=== PATIENT | male | born 1970 | race Caucasian/White ===

== ENCOUNTER 2025-06-03 07:33 | Emergency (ER) | payer MEDICAID, SELFPAY ==
[2025-06-03 07:32] VITALS: BP 189/89; PULSE 95; RESP 18; TEMP 36.9; O2SAT 99
[2025-06-03 07:37] VITALS: BP 189/89; PULSE 95; RESP 18; TEMP 36.9; O2SAT 99
--- NOTE | 2025-06-03 07:42 | ED.GENADUL_ITS ---
Discharge Plan Disposition Patient Disposition: Home Discharge Details Clinical Impression: Abdominal hernia Primary Care Provider: None,None ED Provider: Devyn Voss Discharge Instructions Additional Instructions: You are seen in the emergency department for your hernia. As we discussed, if you develop abdominal pain nausea or vomiting that does not stop or if you have any other concerns please return to the emergency department. The general surgery team will help arrange follow-up. Referrals: [facility] [Provider Group] Discharge Data Discharge Date/Time-TO BE ENTERED AT DEPARTURE: 06/03/25 10:45 HPI General Date/Time Provider Initiated Documentation: 06/03/25 07:35 . HPI Narrative: MDM This is an uncomfortable appearing normothermic and not tachycardic 55-year-old male with significant midline abdominal hernia for which patient will receive CT scan following labs blood cultures. Given subjective fevers and concern for sepsis I also checked a lactate. Will provide prophylactic antibiotics using pip-tazo following return of creatinine. No pain out of proportion to suggest necrotizing soft tissue infection. No dysuria no frequency to suggest UTI. No testicular pain to suggest torsion. Patient is not been vomiting to suggest small bowel obstruction. No recent antibiotics to suggest increased risk for C. difficile. No chest pain to suggest ACS. 8:45 AM CBC lacks anemia thrombocytopenia and leukocytosis. Reassuring normal lactate. 9:15 AM Patient had no leukocytosis. Normal renal function and no acute electrolyte abnormalities. As result we will defer antibiotics at this point in time. 10:30 AM Patient had a large umbilical hernia but no signs of obstruction. I was in touch with Dr. Nicholas from general surgery. She did not feel patient required acute surgical intervention at this point in time. Patient met and discussed return indications including any vomiting did not stop or any nausea. His wounds were covered. There is no signs of superinfection at this point in time. As result we will defer antibiotics. He will follow-up for wound care General Surgery clinic. He had no satellite lesions to suggest candidiasis infection. He did have mild no significant erythema nor warmth I was not concerned for superinfection I did not feel the patient would require cephalexin at this juncture. HPI This is a patient with a history of colostomy presenting with a hernia. The patient underwent a colostomy procedure approximately a year ago in [place], which was intended to be reversed. However, due to complications, the reversal could not be performed. Six months post-surgery, he developed a hernia that has progressively enlarged over time. He has been following up with his healthcare providers in [place] but has not received satisfactory care. This morning, he experienced vomiting and rates his pain as 10 out of 10, stating I am like, I want to jump up a book bridge. He also reported experiencing hot flashes this morning, describing them as like a shake cold and I got a hotge cold. His last meal was a donut and coffee consumed about an hour ago. He does not have diabetes and has abstained from alcohol for the past 6 years. He reports no burning sensation during urination. PAST SURGICAL HISTORY: Colostomy approximately one year ago. Exam General: Uncomfortable-appearing in no acute distress speaking in complete sentences. Head: Normocephalic, atraumatic. Eye: Extraocular eye movements intact. No conjunctival injection. No scleral icterus. Ear, nose, mouth, throat: Grossly normal inspection. Normal voice, handling secretions normally. Neck: Trachea midline. Cardiovascular: Well-perfused distal extremities. Regular rate and rhythm Respiratory: Nonlabored respiration. Clear lungs bilaterally Gastrointestinal: Large approximately 25 x 20 cm central umbilical hernia with intermittent localized excoriated areas as shown in the picture that follows. No significant discoloration. Hernia is soft but has tenderness. No rebound. No guarding. Musculoskeletal: No edema. Moving all 4 extremities spontaneously. Skin: Normal for age and race, grossly normal temperature and turgor. No acute rash. Neurologic: Alert and appropriate, no apparent acute deficits. Related Data Allergies Allergy/AdvReac Type Severity Reaction Status Date / Time No Known Allergies Allergy Unverified 06/03/25 07:37 General Stated Complaint: Abd Prob NATALIE: 3 Course Vital Signs Vital signs: Vital Signs Temperature 36.9 C 06/03/25 07:32 Pulse 95 H 06/03/25 07:32 Respiratory Rate 18 06/03/25 07:32 Blood Pressure 189/89 H 06/03/25 07:32 Pulse Oximetry 99 06/03/25 07:32 Temperature 36.9 C 06/03/25 07:37 Pulse 95 H 06/03/25 07:37 Respiratory Rate 18 06/03/25 07:37 Blood Pressure 189/89 H 06/03/25 07:37 Pulse Oximetry 99 06/03/25 07:37 PFSH All Active Problems (Updated 06/03/25 @ 10:31 by Devyn Voss MD) Abdominal hernia (Acute) Social History Smoking/Tobacco Use Status: Never Smoking risk assessment performed?: Yes Alcohol Intake: never Drug use: Never Substance use type: does not use Housing: homeless
[2025-06-03] MEDS: fentaNYL 100 MCG/2 ML VIAL 50 MCG IVP (08:41)
[2025-06-03] MEDS: Normal Saline 500 ML IV (08:42)
[2025-06-03 08:44] LABS: Abs Immature Grans 0.08 10^3/uL (0.0-0.06); HCT 46.8 % (40.0-50.0); HGB 15.6 g/dL (13.5-17.5); Immature Grans % 0.8 %; MCH 29.3 pg (27.0-33.0); MCHC 33.3 % (32.0-36.0); MCV 88 fL (80-95); MPV 11.2 fL (8.0-11.0); Platelet Count 310 10^3/uL (130-400); RBC 5.33 10^6/uL (4.36-5.78); RDW 13.4 % (11.8-14.1); RDW-SD 43.1 fL; WBC 9.50 10^3/uL (4.4-10.8)
[2025-06-03 09:00] LABS: Anion Gap 8.4 mmol/L (3-11); BUN 10 mg/dL (7-18); CO2 31.6 mmol/L (21.0-32.0); Calcium 9.3 mg/dL (8.5-10.1); Chloride 102 mmol/L (98-107); Estimated GFR 104.51 (mL/min/1.73m2); Glucose 102 mg/dL (74-106); Potassium 3.9 mmol/L (3.5-5.1); Sodium 142 mmol/L (136-145)
[2025-06-03] MEDS: MORPHine 10 MG/ML VIAL 6 MG IVP (09:27)
[2025-06-03] MEDS: Omnipaque 350 MG/ML 500 ML BTL-Imaging package IJ (09:33)
[2025-06-03] MEDS: Normal Saline - Diluent 50 ML VIAL IJ (09:33)
[2025-06-03] MEDS: Normal Saline Flush 10 ML SYR IVP (09:33)
--- NOTE | 2025-06-03 09:39 | DI.CT_ITS ---
Exam(s) CT ABDOMEN PELVIS W EXAM: CT ABDOMEN PELVIS W CLINICAL HISTORY: Abdominal hernia. TECHNIQUE: Imaging Protocol: Axial computed tomography images with coronal and sagittal reformatted images were created and reviewed CONTRAST MATERIAL: Intravenous: Omnipaque 350 Contrast volume:75 ml Oral: no COMPARISON: No exams were available for comparison FINDINGS: ABDOMEN and PELVIS: Lung Bases: No acute findings. Liver: Normal density. No suspicious mass. Gallbladder and biliary tract: No radiodense calculus. No wall thickening or pericholecystic fluid. No biliary dilation. Pancreas: Normal density. No abnormal calcifications or inflammatory process. No evidence of mass. Spleen: Normal. Kidneys: Normal size, contour and axis. No radiodense stones. No obstructive uropathy. No suspicious masses seen. Adrenal glands: No masses seen. Vasculature: Abdominal aorta non-dilated. Atherosclerotic changes peer Bladder: No gross wall thickening. No calculi.No focal mass. Bowel: There is a large dehiscence of the anterior abdominal wall. There is herniation of both colon and a large amount of small bowel. No obstruction. No bowel wall thickening. Diverticulosis of the transverse through descending colon. Left-sided colostomy. The rectum is oversewn and unremarkable. Appendix normal and is located in the right lower portion of the hernia.. Peritoneal cavity: No ascites. No focal collection. No mesenteric inflammatory response. No free air. Bones: Unremarkable for age. Reproductive organs: Unremarkable. Lymph nodes: No pathologically enlarged lymph nodes. IMPRESSION:: Dehiscence of the anterior abdominal wall with large hernia containing loops of small bowel as well as the right colon and appendix. There is also left-sided colostomy. No evidence of obstruction. Diverticulosis without evidence of diverticulitis. Findings called to Dr. Voss of the emergency department. RADIATION DOSE DELIVERED: 499.31mGy.cm Total DLP DATA REPOSITORY: All CT scans at this facility are submitted to the National Radiology Data Registry (NRDR) Dose Index Registry (DIR) with the [employer] ([employer]). RADIATION OPTIMIZATION: All CT scans at this facility use at least one of these dose optimization techniques: automated exposure control; mA and/or kV adjustment per patient size (includes targeted exams where dose is matched to clinical indication); or iterative reconstruction.
[2025-06-03 09:49] VITALS: RESP 21
== END 2025-06-03 10:45 | disposition home or self-care (01) ==
PROVIDERS: Emergency Provider Emergency Medicine
DX: K46.9 Unspecified abdominal hernia without obstruction or gangrene (principal)
CPT/HCPCS: 99285; 99284; 96374; 96375; 80048; 87040; 96361; 74177; 83605; 85025; J2270; J3010